=== PATIENT | male | born 1960 | race African-American/Black ===

== ENCOUNTER 2021-11-02 23:35 | Emergency (ER) | payer MEDICAID ==
[~2021-11-02] VITALS: Ht 172.7 cm; Wt 60.0 kg
[2021-11-02 23:51] VITALS: BP 122/76
[2021-11-03] MEDS ORDERED: TETANUS, DIPHTHERIA, PERTUSSIS VAC/PF 0.5ML (>10YR OLD) IM ONE (02:45)
[2021-11-03] MEDS ORDERED: LIDOCAINE HCL 1% 20ML VIAL (Pyxis) INJ INFIL ONE (02:45)
== END 2021-11-03 03:38 | disposition home or self-care (01) ==
LOC: ER 23:35
DX: S41.112A Laceration without foreign body of left upper arm, initial encounter (principal); X58.XXXA Exposure to other specified factors, initial encounter; Y93.89 Activity, other specified; Y92.89 Other specified places as the place of occurrence of the external cause; Y99.8 Other external cause status
CPT/HCPCS: 12002; 90471; 90715; 99283